=== PATIENT | male | born 1960 | race Caucasian/White ===

== ENCOUNTER 2021-12-04 00:48 | Day surgery (SDC) | payer OTHER, SELFPAY ==
--- NOTE | 2021-12-01 07:12 | P.HP_ITS ---
History of Present Illness History of Present Illness Consent: Risks, benefits, and alternatives have been discussed and questions answered. Patient agrees to proceed with procedure. Chief complaint: BPH Narrative: Monty Madison is a 61 year old male who has been a patient in our practice since July 2021. He has longstanding outlet obstructive voiding symptoms that it started to progress despite medical management with tamsulosin. Urodynamics show peak flow of 2.7 cc/second. Cystoscopy shows lateral lobe enlargement without a significant median lobe. Transrectal ultrasonography shows a prostate volume of 26.1 cc. He has been found to have a normal PSA. we discussed surgical options including TURP, GreenLight laser therapy, Rezum an Urolift. He has elected for the latter. He is aware of the risk including, but not limited to, adverse cardiopulmonary events, postoperative bleeding, persistent irritable and or obstructive voiding symptoms, retrograde ejaculation. Review of Systems Cardiovascular: Cardiovascular: Denies chest pain, Denies lightheadedness, Denies palpitations and Denies dyspnea Respiratory: Respiratory: Denies dyspnea Gastrointestinal: Gastrointestinal: Denies diarrhea, Denies nausea and Denies vomiting Genitourinary: Genitourinary: Denies hematuria and Denies dysuria Endocrine: Endocrine: Denies palpitations Meds Home Medications and Allergies Allergies Allergy/AdvReac Type Severity Reaction Status Date / Time PENCILLIN Allergy Severe RASH Uncoded 10/22/11 06:25 Exam Const: General: no acute distress Resp: Effort & Inspection: normal respiratory effort GI: Inspection: non-distended GI Palp: No abdominal tenderness and No Guarding due to palpation present (GI) Auscultation: normal bowel sounds Assessment and Plan Assessment and plan (1) BPH loc w urin obs/LUTS: Code(s): N40.1 - Benign prostatic hyperplasia with lower urinary tract symptoms Status: Acute Assessment and Plan: * UroLift
[2021-12-03 09:15] VITALS: BMI 26.0
--- NOTE | 2021-12-03 09:23 | PC.NURSE ---
Report to the Outpatient Waiting Room, entrance under the green pavilion located off [facility], at time 0600 on date 12/04/21. OR Time: 0730. Time changes happen often and if your time is changed the preop area will call you the afternoon before. - You and your visitor will be asked to self-screen and do not enter if you have any COVID symptoms. - Only one visitor and NO children visitors are allowed at this time. - The patient visitor is requested to leave or wait in car when not with patient due to restrictions. - A mask is required within the hospital. Patients may have clear liquids (water, carbonated beverages, clear teas, apple juice) until 3 hours prior to surgery with a maximum of 20 ounces. - No food from midnight until time of surgery Take the following medications with a SIP of water the morning of surgery: NONE Medications to discontinue per physician: N/A Date to take last dose: N/A Please no make-up, nail chinese, hairspray, perfume, deodorant, or body powder the day of surgery. No jewelry (including any body piercings) or valuables the day of surgery, leave them at home. Please take a shower or bath the night before, or the morning of, surgery with an antibacterial soap. Wear comfortable, loose fitting clothing. - Jewelry must be removed prior to entering the operating room. Rings and piercings that are not removed may be cut off. - The hospital will not accept responsibility for valuables. - Please leave all valuables, including medications, at home the day of surgery. If you are going home after surgery, a licensed cpr ambulance driver must drive you home. - NO public transportation without another adult. - We recommend that an adult stay with you for 24 hours following discharge. - We also recommend that you do not drive, make important decision, drink alcoholic beverages, or take any drugs that were not prescribed by your health care provider for at least 24 hours after your discharge time. Follow any additional instructions given to you from your surgeon. If you or anyone in your household have experienced Covid symptoms in the past week, please notify your surgeon or the nurse liaison at the phone number below for possible testing. Telephone instructions given to PT - LEON BRINK and asked if any additional questions and then verbalized understanding. Patient advised to call surgeon office or pre surgery nurse liaison [phone] if any additional questions.
--- NOTE | 2021-12-04 05:52 | ECG_ITS ---
Measurements Intervals [place] Rate: 54 P: 1 OH: 173 QRS: 26 QRSD: 102 T: 6 QT: 399 QTc: 380 Interpretive Statements SINUS BRADYCARDIA INCOMPLETE RIGHT BUNDLE BRANCH BLOCK BORDERLINE ECG NO PREVIOUS ECG AVAILABLE FOR COMPARISON Electronically Signed On 12-04-2021 8:55:48 CDT by Johnnie Valenzuela D.O.
[2021-12-04 06:03] VITALS: BP 129/81; PULSE 69; RESP 20; TEMP 36.1; O2SAT 98
[2021-12-04] MEDS: LACTATED RINGERS 1,000 ML 30 ML IV CONT ×2 (06:15→08:59)
--- NOTE | 2021-12-04 06:37 | WPDANESEPPF ---
Anes - Initial Pre Proc Eval Procedure: Operation Date: 12/04/21 07:30 Proposed Procedures p Urolift - Jak Hook MD Date/Time: 12/04/21 06:37 Surgeon: Jak Hook MD Pre Op Diagnosis: BPH Patient Data Age: 61 Gender: M Height: 1.75 m Weight: 78.05 kg Last Vital Signs Temp 36.1 C L 12/04/21 06:03 Pulse 69 12/04/21 06:03 Resp 20 12/04/21 06:03 BP 129/81 12/04/21 06:03 Pulse Ox 98 12/04/21 06:03 O2 Del Method Room Air 12/04/21 06:03 Allergies Allergy/AdvReac Type Severity Reaction Status Date / Time Penicillins AdvReac Mild Rash Verified 12/04/21 06:11 Home Medications Medication Instructions Recorded Confirmed Type hydrochlorothiazide 25 mg tablet 25 mg PO DAILY 12/03/21 12/04/21 History losartan 50 mg tablet 50 mg PO DAILY 12/03/21 12/04/21 History tamsulosin 0.4 mg capsule 0.4 mg PO HS 12/03/21 12/04/21 History Laboratory Tests 12/04/21 06:15 Sodium Pending Potassium Pending Chloride Pending Carbon Dioxide Pending Anion Gap Pending BUN Pending Creatinine Pending Estim Creat Clear Calc Pending Estimated GFR Pending Glucose Pending Calcium Pending Patient hx anesthesia problems: none Family hx anesthesia problems: none Results Review: All pre-operative results and documents have been reviewed as part of the pre-operative evaluation. [facility] Past Medical History Medical History (Updated 12/04/21 @ 06:37 by Luis Alberto Lindo MD) HTN (hypertension) Surgical History Surgical History (Updated 12/04/21 @ 06:38 by Luis Alberto Lindo MD) H/O arthroscopic knee surgery History of total hip arthroplasty Social History Social History Smoking packs per day: 0.25 Smoking cigarettes per day: 5.0 Years smoked: 8 Smoking pack-years: 2.00 Smoking status: Former smoker Tobacco type: cigarettes Smoking end date: 03/22/94 Alcohol intake: never Substance use: never Substance use type: does not use Living arrangements: with family Spiritual care concerns: No Anes - Eval Final PreProcedure Day of Procedure 12/04/21 06:37 Patient weight: overweight Heart: regular rate and rhythm Lungs: clear to auscultation Airway: Mallampati scale class II Neurological: alert and oriented Last oral intake: >/= 8 hours ASA classification: II Emergent: no Anesthetic plan: proceed Anesthesia type and monitoring: general GIVS and standard monitoring Results Review: All pre-operative results and documents have been reviewed as part of the pre-operative evaluation. Informed Consent: The patient's anesthetic plan and its attendant risks and benefits were discussed with the patient/family/POA. Questions were solicited and answers provided to the satisfaction of the patient/family/POA.
[2021-12-04 06:38] LABS: Anion Gap 12 mmol/L (8-16); Blood Urea Nitrogen 15 mg/dL (9-20); Calcium 9.1 mg/dL (8.4-10.2); Carbon Dioxide 28 mmol/L (22-30); Chloride 101 mmol/L (98-107); Estimated CRCL calculation 62 ml/min; Estimated Glomerular Filt Rate > 60; Glucose 102 mg/dL (65-110); Potassium 4.2 mmol/L (3.4-5.0); Sodium 141 mmol/L (137-145)
--- NOTE | 2021-12-04 07:03 | WPDHPUPDATE1 ---
History and Physical Update Update Date/Time: 12/04/21 07:03 History and Physical has been reviewed, including an updated exam of the patient. There are NO changes in the patient's condition. Risks, benefits, and alternatives have been discussed and questions answered. Patient agrees to proceed with procedure.
--- NOTE | 2021-12-04 07:21 | SUR.PREOP ---
0627-CARDIOLOGY NOTIFIED OF NEED FOR EKG. 0715-SILVERSMITH APPRENTICE ARRIVED FOR EKG.
[2021-12-04] MEDS: ceFAZolin 2 GM/D5W 50 ML 2 GM/50 ML BAG IVPB (07:30)
[2021-12-04] MEDS: LIDOCAINE HCL 2% GEL UROJET 10 ML PKG MUCOUS MEM (08:00)
[2021-12-04 08:04] VITALS: BP 110/78; PULSE 65; RESP 12; O2SAT 94
--- NOTE | 2021-12-04 08:07 | P.OP_ITS ---
Procedure Note - Detailed Date of Procedure 12/04/21 Pre-op Diagnosis BPH Post-op Diagnosis Same Procedure Performed UroLift Surgeon Jak Hook MD Description of Procedure The patient was prepped and draped in a routine fashion after the uneventful induction of a general LMA anesthetic. A 20F cystoscope was inserted into the bladder. The cystoscopy bridge was replaced with a UroLift delivery device. The first treatment site was the patient's right side approximately 2.0cm distal to the bladder neck. The distal tip of the delivery device was then angled laterally approximately 20 degrees at this position to compress the lateral lobe. The trigger was pulled, thereby deploying a needle containing the implant through the prostate. The needle was then retracted, allowing one end of the implant to be delivered to the capsular surface of the prostate. The implant was then tensioned to assure capsular seating and removal of slack monofilament. The device was then angled back toward midline and slowly advanced proximally (typically 3 to 4 mm) until cystoscopic verification of the monofilament being centered in the delivery bay. The urethral end piece was then affixed to the monofilament thereby tailoring the size of the implant. Excess filament was then severed. The delivery device was then re-advanced into the bladder. The delivery device was then replaced with cystoscope and bridge and the implant location and opening effect was confirmed cystoscopically. The same procedure was then repeated on the left side, and two additional implants were delivered just proximal to the verumontanum, again one on right and one on left side of the prostate, following the same technique. Cystoscopy then revealed a persistent area of obstruction, and two more implants were delivered in the mid- prostate. Therefore, a total of 6 implants were delivered. A final cystoscopy was conducted first to inspect the location and state of each implant and second, to confirm the presence of a continuous anterior channel was present through the prostatic urethra with irrigation flow turned off. Because of bleeding I did opt to leave an indwelling 18F Smart catheter which I intend to leave overnight. At this point the cystoscope was removed and the patient was taken to the PACU in good condition. Packing No Pathology Yes Complications No immediate complications Condition Stable Disposition PACU
[2021-12-04 08:30] VITALS: BP 137/87; PULSE 52; RESP 14; O2SAT 96
[2021-12-04] MEDS: fentaNYL CITRATE INJ (*CRX) 100 MCG/2 ML VIAL 25 MCG IV PUSH ×2 (08:31→08:34)
[2021-12-04 09:00] VITALS: BP 167/91; PULSE 52; RESP 14
[2021-12-04 09:30] VITALS: BP 166/96; PULSE 51; RESP 14
--- NOTE | 2021-12-04 09:47 | SUR.PHASEII ---
2493 DR LAZCANO ASSESSING PTS URINE COLOR. STATES TO HAVE PT GO HOME WITH HAYDEN CATHETER AND HAVE HIM FOLLOW UP TOMORROW IN HIS OFFICE FOR REMOVAL.
[2021-12-04 10:00] VITALS: BP 163/91; PULSE 51; RESP 12
== END 2021-12-04 10:15 | disposition home or self-care (01) ==
PROVIDERS: Anesthesiology; PCP Pediatrics; Visit Provider Urology
PROC: 0T7D8DZ Dilation of Urethra with Intraluminal Device, Via Natural or Artificial Opening Endoscopic (ICD-10-PCS; CPT 52441; principal; 2021-12-04 07:30)
DX: N40.1 Benign prostatic hyperplasia with lower urinary tract symptoms (principal); N13.8 Other obstructive and reflux uropathy; I10 Essential (primary) hypertension; E78.00 Pure hypercholesterolemia, unspecified; Z87.891 Personal history of nicotine dependence
CPT/HCPCS: 52441; 52442 ×5; 36415; 80048; 93005; A9270; J0690; J2704; J3010; J7120; L8699